=== PATIENT | male | born 1995 | race African-American/Black ===

== ENCOUNTER 2023-04-24 13:46 | Emergency (ER) | payer OTHER ==
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
[2023-04-24 15:40] LABS: Absolute Lymphocytes (CBC) 1.1 K/uL (0.7-4.9); Lymphocytes % 14.9 % (15.3-44.8); MCV 73.8 fL (80-100); MPV 8.2 fL (7.6-11.3); Potassium 4.7 mEq/L (3.5-5.1); RBC Red Blood Cell Count 5.01 M/uL (4.33-5.43)
[2023-04-24] MEDS ORDERED: LIDOCAINE 1% MPF 30 ML VIAL ONE (16:48)
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
[2023-04-24 19:36] VITALS: TEMP 98.8; O2SAT 100
[2023-04-24 19:38] VITALS: BP 160/84
--- NOTE | 2023-04-27 17:17 | EKG ---
Test Date: 2023-04-24 Test Time: 15:19:43 Art Consultant: MICHAEL MEASUREMENT RESULTS: Intervals: Rate: 61 MO: 104 QRSD: 78 QT: 442 QTc: 444 [place]: P: -4 MO: 104 QRS: 62 T: 26 INTERPRETIVE STATEMENTS: Sinus rhythm with short MO Otherwise normal ECG No previous ECG available for comparison Electronically Signed On 04-27-23 17:12:14 CDT by Leonel Moreira
== END 2023-04-24 18:36 | disposition home or self-care (01) ==
LOC: ER 13:46
PROC: 0HQ1XZZ Repair Face Skin, External Approach (ICD-10-PCS; principal; 2023-04-24)
DX: S01.511A Laceration without foreign body of lip, initial encounter (principal); S05.12XA Contusion of eyeball and orbital tissues, left eye, initial encounter
CPT/HCPCS: 85025; 80048; 36415; 70450; 70486; 76377; 99284; 12013; J2001; 93005

== ENCOUNTER 2024-04-02 16:00 | Emergency (ER) | payer OTHER ==
[2024-04-02] MEDS ORDERED: SMZ./TMP. 800/160 MG TABLET ONE (17:48)
[2024-04-02] MEDS ORDERED: TOBRAMYCIN SULF 0.3% OPTH OINT ONE (17:48)
[2024-04-02] MEDS ORDERED: DOXYCYCLINE 100 MG CAP PO ONE (17:49)
--- NOTE | 2024-04-02 18:08 | ER ---
Nurse's Notes [facility] Name: Job Bhatt Age: 28 yrs Sex: Male : 1995 Arrival Date: 04/02/2024 Time: 16:00 Bed 9 Private MD: Diagnosis: Abscess of left upper eyelid Presentation: 04/02 16:05 Chief complaint: Patient states: "I have a stye on my left eye for a few weeks now". mb9 Coronavirus screen: Vaccine status: Patient reports receiving the 2nd dose of the covid vaccine. Ebola Screen: No symptoms or risks identified at this time. Initial Sepsis Screen: Does the patient meet any 2 criteria? No. Patient's initial sepsis screen is negative. Does the patient have a suspected source of infection? No. Patient's initial sepsis screen is negative. Risk Assessment: Do you want to hurt yourself or someone else? Patient reports no desire to harm self or others. Onset of symptoms was April 02, 2024. 16:05 Method Of Arrival: Law Enforcement: Raymon arellano 16:05 Acuity: VAZQUEZ 4 mb9 Triage Assessment: 16:07 General: Appears in no apparent distress. Behavior is calm, cooperative. Pain: Denies mb9 pain. EENT: bump on left eye . Neuro: Level of Consciousness is awake, alert, obeys commands, Oriented to person, place, time, situation, Appropriate for age. Cardiovascular: Patient's skin is warm and dry. Respiratory: Airway is patent Respiratory effort is even, unlabored, Respiratory pattern is regular, symmetrical. GI: No signs and/or symptoms were reported involving the gastrointestinal system. : No signs and/or symptoms were reported regarding the genitourinary system. Derm: Skin is pink, warm \\T\\ dry. Musculoskeletal: Range of motion: intact in all extremities. Historical: - Allergies: 16:07 No Known Allergies; mb9 - Home Meds: 16:07 None [Active]; mb9 - PMHx: 16:07 None; mb9 - PSHx: 16:07 None; mb9 - Immunization history:: Adult Immunizations up to date. - Infectious Disease History:: Denies. - Social history:: Smoking status: Patient reports the use of cigarette tobacco products, denies chronic smoking, but will smoke occasionally. - Family history:: not pertinent. Screenin:08 [facility] ED Fall Risk Assessment (Adult) History of falling in the last 3 months, mb9 including since admission No falls in past 3 months (0 pts) Confusion or Disorientation No (0 pts) Intoxicated or Sedated No (0 pts) Impaired Gait No (0 pts) Mobility Assist Device Used No (0 pt) Altered Elimination No (0 pt) Score/Fall Risk Level 0 - 2 = Low Risk Oriented to surroundings, Maintained a safe environment, Educated pt \\T\\ family on fall prevention, incl call for assistance when getting out of bed. Abuse screen: Denies threats or abuse. Nutritional screening: No deficits noted. Tuberculosis screening: No symptoms or risk factors identified. Assessment: 16:08 Reassessment: see triage assessment. Reassessment: Clemon guards at bedside. mb9 17:12 Reassessment: No changes from previously documented assessment. Patient and/or family mb9 updated on plan of care and expected duration. Pain level reassessed. Patient is alert, oriented x 3, equal unlabored respirations, skin warm/dry/pink. Vital Signs: 16:05 BP 104 / 91; Pulse 68; Resp 18; Temp 98; Pulse Ox 100% ; Weight 72.57 kg; Height 5 ft. mb9 8 in. ; 18:15 BP 110 / 84; Pulse 70; Resp 18; Pulse Ox 100% on R/A; mb9 16:05 Body Mass Index 24.33 (72.57 kg, 172.72 cm) mb9 ED Course: 16:03 Patient arrived in ED. cm10 16:04 Sawyer Parker MD is Attending Physician. jocelin 16:05 Jennifer Spears RN is Primary Nurse. mb9 16:05 Arm band placed on Patient placed in an exam room, on a stretcher. ll1 16:06 Triage completed. mb9 16:08 Bed in low position. Call light in reach. Side rails up X 1. Provided Education on: mb9 press call light if needing anything. Client placed on continuous cardiac and pulse oximetry monitoring. NIBP monitoring applied. 18:06 Jorge L Noe MD is Referral Physician. jocelin 18:15 No provider procedures requiring assistance completed. Patient did not have IV access mb9 during this emergency room visit. Administered Medications: 17:53 Drug: Tobramycin Ophthalmic Ointment (0.3 %) 1 application Ophthalmic once; left eye mb9 Route: Ophthalmic; Site: left eye; 18:12 Follow up: Response: No adverse reaction mb9 17:53 Drug: Trimethoprim-Sulfamethoxazole PO (160 mg-800 mg (DS) 1 tablet PO once Route: PO; mb9 18:12 Follow up: Response: No adverse reaction mb9 17:53 Drug: Doxycycline PO 200 mg PO once Route: PO; mb9 18:12 Follow up: Response: No adverse reaction mb9 Medication: 16:08 VIS not applicable for this client. mb9 Outcome: 18:07 Discharge ordered by . jocelin 18:15 Discharged to Law Enforcement mb9 18:15 Condition: stable 18:15 Discharge instructions given to patient, Instructed on discharge instructions, follow up and referral plans. Demonstrated understanding of instructions, follow-up care, medications, Prescriptions given X 3, 18:15 Patient left the ED. mb9 Signatures: Sawyer Parker MD MD cha Lewis, Lynsay, RN RN ll1 Jennifer Spears RN RN mb9 Candy Lares RN RN cm10 Corrections: (The following items were deleted from the chart) 16:07 16:07 Home Meds: Unable to obtain; mb9 mb9
--- NOTE | 2024-04-02 18:08 | EDPHYS ---
Physician Documentation [facility] Name: Job Bhatt Age: 28 yrs Sex: Male : 1995 Arrival Date: 04/02/2024 Time: 16:00 Bed 9 Private MD: ED Physician Sawyer Parker HPI: 04/02 18:00 This 28 yrs old Black Male presents to ER via [employer] with complaints of stye jocelin on eye. 18:00 The patient is experiencing pain, redness, to the left eye. Onset: The symptoms/episode jocelin began/occurred 1 day(s) ago. Duration: the symptoms are continuous. Aggravated by closing eye, pressure, rubbing, Alleviated by cold application, lying down. Associated signs and symptoms: Pertinent positives: None. Pertinent negatives: chills. Patient does not utilize any form of vision correction. Severity of symptoms: At their worst the symptoms were mild moderate in the emergency department the symptoms are unchanged. The patient has not experienced similar symptoms in the past. Historical: - Allergies: 16:07 No Known Allergies; mb9 - Home Meds: 16:07 None [Active]; mb9 - PMHx: 16:07 None; mb9 - PSHx: 16:07 None; mb9 - Immunization history:: Adult Immunizations up to date. - Infectious Disease History:: Denies. - Social history:: Smoking status: Patient reports the use of cigarette tobacco products, denies chronic smoking, but will smoke occasionally. - Family history:: not pertinent. ROS: 18:00 Constitutional: Negative for fever, chills, and weight loss, ENT: Negative for injury, jocelin pain, and discharge, Neck: Negative for injury, pain, and swelling, Cardiovascular: Negative for chest pain, palpitations, and edema, Respiratory: Negative for shortness of breath, cough, wheezing, and pleuritic chest pain, Abdomen/GI: Negative for abdominal pain, nausea, vomiting, diarrhea, and constipation, Back: Negative for injury and pain, : Negative for injury, bleeding, discharge, and swelling, MS/Extremity: Negative for injury and deformity, Neuro: Negative for headache, weakness, numbness, tingling, and seizure, Psych: Negative for depression, anxiety, suicide ideation, homicidal ideation, and hallucinations, Allergy/Immunology: Negative for hives, rash, and allergies, Endocrine: Negative for neck swelling, polydipsia, polyuria, polyphagia, and marked weight changes, 18:00 Eyes: Positive for pain, swelling, of the left upper eyelid and iris of left eye, Exam: 18:02 Constitutional: This is a well developed, well nourished patient who is awake, alert, jocelin and in no acute distress. Head/Face: Normocephalic, atraumatic. ENT: Nares patent. No nasal discharge, no septal abnormalities noted. Tympanic membranes are normal and external auditory canals are clear. Oropharynx with no redness, swelling, or masses, exudates, or evidence of obstruction, uvula midline. Mucous membranes moist. Neck: Trachea midline, no thyromegaly or masses palpated, and no cervical lymphadenopathy. Supple, full range of motion without nuchal rigidity, or vertebral point tenderness. No Meningismus. Chest/axilla: Normal chest wall appearance and motion. Nontender with no deformity. No lesions are appreciated. Cardiovascular: Regular rate and rhythm with a normal S1 and S2. No gallops, murmurs, or rubs. Normal PMI, no JVD. No pulse deficits. Respiratory: Lungs have equal breath sounds bilaterally, clear to auscultation and percussion. No rales, rhonchi or wheezes noted. No increased work of breathing, no retractions or nasal flaring. Abdomen/GI: Soft, non-tender, with normal bowel sounds. No distension or tympany. No guarding or rebound. No evidence of tenderness throughout. Back: No spinal tenderness. No costovertebral tenderness. Full range of motion. Skin: Warm, dry with normal turgor. Normal color with no rashes, no lesions, and no evidence of cellulitis. MS/ Extremity: Pulses equal, no cyanosis. Neurovascular intact. Full, normal range of motion. Neuro: Awake and alert, GCS 15, oriented to person, place, time, and situation. Cranial nerves II-XII grossly intact. Motor strength 5/5 in all extremities. Sensory grossly intact. Cerebellar exam normal. Normal gait. Psych: Awake, alert, with orientation to person, place and time. Behavior, mood, and affect are within normal limits. 18:02 Eyes: Periorbital structures: cellulitis, that is mild, on the left upper eyelid, erythema, that is mild, on the left upper eyelid, swelling, that is mild, on the left upper eyelid, Pupils: no acute changes, equal, round, and reactive to light and accomodation, Extraocular movements: no acute changes, Conjunctiva: normal, Corneas: are normal, Sclera: no appreciated abnormality, Anterior chamber: normal, Lids and lashes: erythema, on the left, Vital Signs: 16:05 BP 104 / 91; Pulse 68; Resp 18; Temp 98; Pulse Ox 100% ; Weight 72.57 kg; Height 5 ft. mb9 8 in. ; 18:15 BP 110 / 84; Pulse 70; Resp 18; Pulse Ox 100% on R/A; mb9 16:05 Body Mass Index 24.33 (72.57 kg, 172.72 cm) mb9 MDM: 16:04 Patient medically screened. jocelin 18:04 Differential diagnosis:. Data reviewed: vital signs, nurses notes. Consideration of jocelin Admission/Observation Escalation of care including admission/observation considered. I considered the following discharge prescriptions or medication management in the emergency department Medications were administered in the Emergency Department. See MAR. Test considered but Not performed: Labs: no labs. Historians other than the Patient: pt well informed. Care significantly affected by the following chronic conditions: none. Counseling: I had a detailed discussion with the patient and/or guardian regarding the historical points, exam findings, and any diagnostic results supporting the discharge/admit diagnosis, the need for outpatient follow up, for definitive care, an opthalmologist, a family practitioner. 04/02 17:46 Order name: [facility]. Order: moist warm compress; Complete Time: 17:53 jocelin Administered Medications: 17:53 Drug: Tobramycin Ophthalmic Ointment (0.3 %) 1 application Ophthalmic once; left eye mb9 Route: Ophthalmic; Site: left eye; 18:12 Follow up: Response: No adverse reaction mb9 17:53 Drug: Trimethoprim-Sulfamethoxazole PO (160 mg-800 mg (DS) 1 tablet PO once Route: PO; mb9 18:12 Follow up: Response: No adverse reaction mb9 17:53 Drug: Doxycycline PO 200 mg PO once Route: PO; mb9 18:12 Follow up: Response: No adverse reaction mb9 Disposition Summary: 04/02/24 18:07 Discharge Ordered Notes: Location: Home jocelin Problem: new jocelin Symptoms: have improved jocelin Condition: Stable jocelin Diagnosis - Abscess of left upper eyelid [facility] Followup: jocelin - With: Private Physician - When: 2 - 3 days - Reason: Recheck today's complaints, Continuance of care, Re-evaluation by your physician Followup: jocelin - With: Jorge L Noe MD - When: 2 - 3 days - Reason: Recheck today's complaints, Re-evaluation by your physician Discharge Instructions: - Discharge Summary Sheet jocelin - Skin Abscess jocelin - Stye [facility] - Preseptal Cellulitis, Adult [facility] Forms: - Medication Reconciliation Form [facility] - Antibiotic Education [facility] - Prescription Opioid Use [facility] - Patient Portal Instructions [facility] - Leadership Thank You Letter [facility] Prescriptions: - Tobrex 0.3 % Ophthalmic ointment - instill 1 application OPHTHALMIC route every 6 hours for 7 days; 3.5 gram; [facility] Refills: 0, Product Selection Permitted - Doxycycline Hyclate 100 mg Oral Tablet - take 1 tablet ORAL route every 12 hours; 20 tablet; Refills: 0, Product [facility] Selection Permitted - Bactrim DS 800-160 mg Oral Tablet - take 1 tablet ORAL route every 12 hours for 10 days; 20 tablet; Refills: 0, [facility] Product Selection Permitted Signatures: Sawyer Parker MD MD cha Breneman, Mary Beth RN RN mb9 Corrections: (The following items were deleted from the chart) 16:07 16:07 Home Meds: Unable to obtain; adan mb9
[2024-04-02 18:29] VITALS: BP 110/84; TEMP 98; O2SAT 100
== END 2024-04-02 18:15 | disposition home or self-care (01) ==
LOC: ER 16:00
DX: H00.034 Abscess of left upper eyelid (principal)
CPT/HCPCS: 99283

== ENCOUNTER 2024-04-06 16:53 | Emergency (ER) | payer OTHER ==
[2024-04-06] MEDS ORDERED: NA CHLORIDE 0.9% 1,000 ML ONE (17:05)
[2024-04-06 17:42] LABS: Absolute Lymphocytes (CBC) 0.8 K/uL (0.7-4.9); Absolute Monocytes 0.2 K/uL (0.1-1.3); Absolute Neutrophil 2.8 K/uL (1.8-8.0); Basophils % 0.7 % (0-1.3); Eosinophils % 0.7 % (0-4.4); Hematocrit 36.7 % (39.6-49.0); Hemoglobin 11.6 g/dL (13.6-17.9); Lymphocytes % 21.1 % (15.3-44.8); MCH 23.6 pg (27.0-35.0); MCHC 31.7 g/dL (32.0-36.0); MCV 74.5 fL (80-100); MPV 8.9 fL (7.6-11.3); Monocytes % 6.2 % (3.3-12.3); Neutrophils % 71.3 % (41.7-73.7); Nucleated Red Blood Cells % 0.2 % (0-0); Platelets 177 thou/uL (152-406); RBC Red Blood Cell Count 4.93 M/uL (4.33-5.43); Red Cell Distribution Width 13.9 % (12.1-15.2)
[2024-04-06 17:43] LABS: PT Prothrombin Time 12.6 SECONDS (9.5-12.5); PTT, Activated Partial Thromb 29.3 SECONDS (24.3-36.9); Protime INR 1.15
[2024-04-06 18:03] LABS: ALT/SGPT 43 U/L (16-61); Albumin 3.8 g/dL (3.4-5.0); Albumin/Globulin Ratio 1.1 (1.1-1.8); Alkaline Phosphatase 46 U/L (45-117); Anion Gap 8.1 mEq/L (5.0-15.0); BUN Blood Urea Nitrogen 11 mg/dL (7-18); Bicarbonate 31 mEq/L (21-32); Bilirubin Total 0.6 mg/dL (0.2-1.0); Globulin 3.6 g/dL (2.3-3.5); Glomerular Filtration Rate 97 ml/min (=/>90); Glucose Level 96 mg/dL (74-106); Protein, Total 7.4 g/dL (6.4-8.2); Sodium Level 139 mEq/L (136-145)
[2024-04-06 18:04] LABS: AST/SGOT 28 U/L (15-37); Bilirubin Direct < 0.2 mg/dL (0-0.2); Bilirubin Indirect, Calculated 0.4 mg/dL (0.2-0.8); Potassium 4.1 mEq/L (3.5-5.1)
[2024-04-06 19:14] LABS: Barbiturates NEGATIVE (NEGATIVE); Benzodiazepines NEGATIVE (NEGATIVE); Cocaine NEGATIVE (NEGATIVE); METHAMPHETAM NEGATIVE (NEGATIVE); Methadone NEGATIVE (NEGATIVE); Opiates NEGATIVE (NEGATIVE); Phencyclidine NEGATIVE (NEGATIVE); THC Cannibis NEGATIVE (NEGATIVE)
--- NOTE | 2024-04-06 22:25 | EDPHYS ---
Physician Documentation [facility] Name: Job Bhatt Age: 28 yrs Sex: Male : 1995 Arrival Date: 04/06/2024 Time: 16:53 Bed 2 Private MD: ED Physician Sawyer Parker HPI: 04/06 18:09 This 28 yrs old Black Male presents to ER via EMS with complaints of Drug Abuse. kb 18:09 Pt is a 28 year old male who was brought in for possible overdose. EMS was called for kb an unresponsive pt. Pt was given narcan and is now A\T\Ox4. Pt states he drank something that he thought was coffee. . Historical: - Allergies: 17:02 No Known Allergies; ld1 - Home Meds: 17:02 None [Active]; ld1 - PMHx: 17:02 None; ld1 - PSHx: 17:02 None; ld1 - Immunization history:: Adult Immunizations up to date. - Infectious Disease History:: Denies. - Social history:: Smoking status: Patient denies any tobacco usage or history of. ROS: 18:09 Constitutional: As per HPI kb Exam: 18:09 Constitutional: This is a well developed, well nourished patient who is awake, alert, kb and in no acute distress. Head/Face: Normocephalic, atraumatic. ENT: Moist Mucous membranes Cardiovascular: Regular rate Respiratory: Respirations even and unlabored. No increased work of breathing. Talking in full sentences Abdomen/GI: Soft, non-tender. No distention Skin: Warm, dry with normal turgor. Normal color. MS/ Extremity: Pulses equal, no cyanosis. Neurovascular intact. Full, normal range of motion. Neuro: Awake and alert, GCS 15, oriented to person, place, time, and situation. Moves all extremities. Normal gait. 18:09 ECG was reviewed by the Attending Physician. Vital Signs: 16:59 BP 146 / 103; Pulse 52; Resp 18; Temp 97.6(TE); Pulse Ox 98% on R/A; Weight 77.11 kg; ld1 Height 5 ft. 8 in. ; Pain 0/10; 17:52 BP 135 / 72; Pulse 68; Resp 18; Pulse Ox 98% ; ld1 18:46 BP 145 / 85; Pulse 50; Resp 18; Pulse Ox 99% on R/A; ld1 19:15 BP 127 / 73; Pulse 63; Resp 16; Pulse Ox 98% on R/A; km8 23:00 BP 132 / 82; Pulse 63; Resp 16; Pulse Ox 100% on R/A; km8 16:59 Body Mass Index 25.85 (77.11 kg, 172.72 cm) ld1 16:59 Pain Scale: Adult ld1 MDM: 16:59 Patient medically screened. kb 18:11 Data reviewed: vital signs, nurses notes. kb 22:23 Differential diagnosis: polypharmacy, overdose. Historians other than the Patient: carmelita Historians other than the Patient: EMS: [facility]. 22:23 Counseling: I had a detailed discussion with the patient and/or guardian regarding the kb historical points, exam findings, and any diagnostic results supporting the discharge/admit diagnosis, lab results, the need for outpatient follow up, a family practitioner, to return to the emergency department if symptoms worsen or persist or if there are any questions or concerns that arise at home. 04/06 17:04 Order name: Acetaminophen; Complete Time: 18:08 kb 04/06 17:04 Order name: Basic Metabolic Panel; Complete Time: 18:08 kb 04/06 17:04 Order name: CBC with Diff; Complete Time: 17:46 kb 04/06 17:04 Order name: ETOH Level; Complete Time: 18:08 kb 05 17:04 Order name: Hepatic Function; Complete Time: 18:08 kb 04/06 17:04 Order name: PT-INR; Complete Time: 17:46 kb 04/06 17:04 Order name: Ptt, Activated; Complete Time: 17:46 kb 05 17:04 Order name: Salicylate; Complete Time: 18:43 kb 04/06 17:04 Order name: Urine Drug Screen; Complete Time: 19:14 kb 04/06 17:04 Order name: EKG; Complete Time: 17:05 kb 04/06 17:04 Order name: EKG - Nurse/Tech; Complete Time: 17:04 kb 04/06 17:04 Order name: IV Saline Lock; Complete Time: 17:04 kb 04/06 17:04 Order name: Labs collected and sent; Complete Time: 17:04 kb 04/06 17:04 Order name: Suicide Screening (Joan); Complete Time: 17:07 kb EC:09 Rate is 58 beats/min. Rhythm is regular. QRS [place] is Normal. LA interval is normal at kb 120 msec. QRS interval is normal at 82 msec. QT interval is normal at 437 msec. Administered Medications: 17:07 Drug: NS 0.9% IV 1000 ml IV at 1000 ml once Route: IV; Rate: 1000 ml; Site: left ld1 forearm; 19:14 Follow up: IV Status: Completed infusion; IV Intake: 1000ml tm6 Disposition Summary: 04/06/24 22:24 Discharge Ordered Notes: Condition: Stable kb Location: [employer] Enforcement(04/06/24 22:25) kb Diagnosis - drug abuse kb Followup: kb - With: Emergency Department - When: As needed - Reason: Worsening of condition Followup: kb - With: Private Physician - When: 2 - 3 days - Reason: Recheck today's complaints, Continuance of care, Re-evaluation by your physician Discharge Instructions: - Discharge Summary Sheet kb - Accidental Drug Poisoning, Adult kb Forms: - Medication Reconciliation Form kb - Antibiotic Education kb - Prescription Opioid Use kb - Patient Portal Instructions kb - Leadership Thank You Letter kb Signatures: Dispatcher [employer] EDMS Magda Boyer, STRATEGIC PLANNING ANALYST-C STRATEGIC PLANNING ANALYST-Luisb Cait Hebert RN RN ld1 Remy Shipman RN tm6 Corrections: (The following items were deleted from the chart) 17:05 17:05 ACETAMINOPHEN+C.LAB.BRZ ordered. EDMS EDMS 17:05 17:05 BASIC METABOLIC PANEL+C.LAB.BRZ ordered. EDMS EDMS 17:05 17:05 CBC+H.LAB.BRZ ordered. EDMS EDMS 17:05 17:05 ETHANOL+C.LAB.BRZ ordered. EDMS EDMS 17:05 17:05 HEPATIC FUNCTION+C.LAB.BRZ ordered. EDMS EDMS 17:05 17:05 PROTIME (+INR)+COAG.LAB.BRZ ordered. EDMS EDMS 17:05 17:05 PTT, ACTIVATED+COAG.LAB.BRZ ordered. EDMS EDMS 17:05 17:05 SALICYLATE+C.LAB.BRZ ordered. EDMS EDMS 17:05 17:05 URINE DRUG SCREEN+UC.LAB.BRZ ordered. EDMS EDMS 22:24 22: Historians other than the Patient: kb kb :24 Home kb kb
--- NOTE | 2024-04-06 22:25 | ER ---
Nurse's Notes [facility] Name: Job Bhatt Age: 28 yrs Sex: Male : 1995 Arrival Date: 04/06/2024 Time: 16:53 Bed 2 Private MD: Diagnosis: drug abuse Presentation: 04/06 16:59 Chief complaint: EMS states: toned out to [facility] for being found unresponsive. ld1 EMS adminsitered 2mg Narcan IVP, pt AAOx4 upon arrival to ER. Pt reports "drinking something.". Coronavirus screen: At this time, the client does not indicate any symptoms associated with coronavirus-19. Ebola Screen: No symptoms or risks identified at this time. Initial Sepsis Screen: Does the patient meet any 2 criteria? No. Patient's initial sepsis screen is negative. Does the patient have a suspected source of infection? No. Patient's initial sepsis screen is negative. Risk Assessment: Do you want to hurt yourself or someone else? Patient reports no desire to harm self or others. Onset of symptoms was April 06, 2024. 16:59 Method Of Arrival: EMS: [facility] ld1 16:59 Acuity: VAZQUEZ 3 ld1 Triage Assessment: 16:59 General: Appears in no apparent distress. comfortable, Behavior is calm, cooperative, ld1 appropriate for age. Pain: Denies pain. EENT: No signs and/or symptoms were reported regarding the EENT system. Neuro: Level of Consciousness is awake, alert, obeys commands, Oriented to person, place, time, situation. Cardiovascular: Capillary refill < 3 seconds Patient's skin is warm and dry. Respiratory: Airway is patent Respiratory effort is even, unlabored. GI: Abdomen is flat, non-distended. : No signs and/or symptoms were reported regarding the genitourinary system. Derm: No signs and/or symptoms reported regarding the dermatologic system. Musculoskeletal: No signs and/or symptoms reported regarding the musculoskeletal system. Historical: - Allergies: 17:02 No Known Allergies; ld1 - Home Meds: 17:02 None [Active]; ld1 - PMHx: 17:02 None; ld1 - PSHx: 17:02 None; ld1 - Immunization history:: Adult Immunizations up to date. - Infectious Disease History:: Denies. - Social history:: Smoking status: Patient denies any tobacco usage or history of. Screenin:02 [facility] ED Fall Risk Assessment (Adult) History of falling in the last 3 months, ld1 including since admission No falls in past 3 months (0 pts). Abuse screen: Denies threats or abuse. Denies injuries from another. Nutritional screening: No deficits noted. Tuberculosis screening: No symptoms or risk factors identified. Assessment: 17:02 Reassessment: See triage assessment. ld1 17:52 Reassessment: Patient appears in no apparent distress at this time. No changes from ld1 previously documented assessment. Patient and/or family updated on plan of care and expected duration. Pain level reassessed. Patient is alert, oriented x 3, equal unlabored respirations, skin warm/dry/pink. 18:46 Reassessment: Patient appears in no apparent distress at this time. No changes from ld1 previously documented assessment. Patient and/or family updated on plan of care and expected duration. Pain level reassessed. Patient is alert, oriented x 3, equal unlabored respirations, skin warm/dry/pink. 20:00 Reassessment: Patient appears in no apparent distress at this time. Patient and/or km8 family updated on plan of care and expected duration. Pain level reassessed. Patient is alert, oriented x 3, equal unlabored respirations, skin warm/dry/pink. General: Appears in no apparent distress. comfortable, Behavior is calm, cooperative, appropriate for age. Pain: Denies pain. Neuro: Level of Consciousness is awake, alert, obeys commands, Oriented to person, place, time, situation. Cardiovascular: Patient's skin is warm and dry. Respiratory: Airway is patent Respiratory effort is even, unlabored, Respiratory pattern is regular, symmetrical. 21:00 Reassessment: Patient appears in no apparent distress at this time. No changes from km8 previously documented assessment. Patient and/or family updated on plan of care and expected duration. Pain level reassessed. Patient is alert, oriented x 3, equal unlabored respirations, skin warm/dry/pink. 22:00 Reassessment: Patient appears in no apparent distress at this time. No changes from km8 previously documented assessment. Patient and/or family updated on plan of care and expected duration. Pain level reassessed. Patient is alert, oriented x 3, equal unlabored respirations, skin warm/dry/pink. 23:04 Reassessment: Patient appears in no apparent distress at this time. Patient and/or km8 family updated on plan of care and expected duration. Pain level reassessed. Patient is alert, oriented x 3, equal unlabored respirations, skin warm/dry/pink. General: Appears in no apparent distress. comfortable, Behavior is calm, cooperative, appropriate for age. Pain: Denies pain. Neuro: Level of Consciousness is awake, alert, obeys commands, Oriented to person, place, time, situation. Cardiovascular: Denies chest pain, shortness of breath, Patient's skin is warm and dry. Respiratory: Airway is patent Respiratory effort is even, unlabored, Respiratory pattern is regular, symmetrical. Derm: Skin is intact, is healthy with good turgor, Skin is dry, Skin is pink, warm \\T\\ dry. normal, Skin temperature is warm. Musculoskeletal: Range of motion: intact in all extremities. Vital Signs: 16:59 BP 146 / 103; Pulse 52; Resp 18; Temp 97.6(TE); Pulse Ox 98% on R/A; Weight 77.11 kg; ld1 Height 5 ft. 8 in. ; Pain 0/10; 17:52 BP 135 / 72; Pulse 68; Resp 18; Pulse Ox 98% ; ld1 18:46 BP 145 / 85; Pulse 50; Resp 18; Pulse Ox 99% on R/A; ld1 19:15 BP 127 / 73; Pulse 63; Resp 16; Pulse Ox 98% on R/A; km8 23:00 BP 132 / 82; Pulse 63; Resp 16; Pulse Ox 100% on R/A; km8 16:59 Body Mass Index 25.85 (77.11 kg, 172.72 cm) ld1 16:59 Pain Scale: Adult ld1 ED Course: 16:58 Patient arrived in ED. mb9 16:58 Cait Hebert, RN is Primary Nurse. ld1 16:58 Maintain EMS IV. Dressing intact. Good blood return noted. Site clean \\T\\ dry. Gauge \\T\\ ld 1 site: 20g LFA. 16:59 Magda Boyer FNP-C [facility]. kb 16:59 Sawyer Parker MD is Attending Physician. kb 16:59 Arm band placed on right wrist. ld1 17:01 Triage completed. ld1 17:02 No provider procedures requiring assistance completed. ld1 17:02 Patient has correct armband on for positive identification. Placed in gown. Bed in low ld1 position. Call light in reach. Side rails up X2. Security at bedside. gambling monitor on. Pulse ox on. NIBP on. Door closed. Noise minimized. Warm blanket given. 18:46 Urine Drug Screen Sent. ld1 19:04 Report given to Dionne RN. mb9 23:03 IV discontinued, intact, bleeding controlled, No redness/swelling at site. Pressure km8 dressing applied. 23:04 Provided Education on: d/c teaching. km8 Administered Medications: 17:07 Drug: NS 0.9% IV 1000 ml IV at 1000 ml once Route: IV; Rate: 1000 ml; Site: left ld1 forearm; 19:14 Follow up: IV Status: Completed infusion; IV Intake: 1000ml tm6 Medication: 23:04 VIS not applicable for this client. km8 Intake: 19:14 IV: 1000ml; Total: 1000ml. tm6 Outcome: 22:24 Discharge ordered by . carmelita 23:04 Discharged to Law Enforcement km8 23:04 Condition: good 23:04 Instructed on discharge instructions, follow up and referral plans. Demonstrated understanding of instructions, follow-up care, 23:06 Patient left the ED. km8 Signatures: Magda Boyer, INTERNAL COMBUSTION ENGINEER-C INTERNAL COMBUSTION ENGINEER-Ckb Cait Hebert RN RN ld1 Jennifer Spears RN RN mb9 Monica Greer, BEULAH RIOJAS km8 Remy Shipman RN RN tm6
[2024-04-06 23:36] VITALS: BP 132/82; TEMP 97.6; O2SAT 100
--- NOTE | 2024-04-09 11:51 | EKG ---
Test Date: 2024-04-06 Test Time: 17:03:08 Patient Registration Rep: MADELYN MEASUREMENT RESULTS: Intervals: Rate: 58 MT: 120 QRSD: 82 QT: 446 QTc: 437 [place]: P: 30 MT: 120 QRS: 88 T: 30 INTERPRETIVE STATEMENTS: Sinus bradycardia with marked sinus arrhythmia Otherwise normal ECG Compared to ECG 04/24/2023 15:19:43 Sinus rhythm no longer present Short MT interval no longer present Electronically Signed On 04-09-24 11:48:54 CDT by Get Browning
== END 2024-04-06 23:06 ==
LOC: ER 16:53
DX: F19.10 Other psychoactive substance abuse, uncomplicated (principal)
CPT/HCPCS: 36415; 80048; 80076; 80143; 80179; 80307; 82077; 85025; 85610; 85730; 93005; 96360; 96361; 99285; J7030